=== PATIENT | female | born 1965 | race Two or more races ===

== ENCOUNTER 2019-10-30 05:54 | Day surgery (SDC) | payer MEDICAID ==
[2019-10-30] MEDS ORDERED: ANESTHESIA TRAY IN PYXIS 1 EA TRAY MC ONE (06:30)
[2019-10-30] MEDS ORDERED: LIDOCAINE HCL/MPF 1% 30 ML VIAL IJ ONE (06:31)
[2019-10-30] MEDS ORDERED: EPINEPHRINE (1:1000) 1 MG/ML AMPUL ONE (06:31)
[2019-10-30] MEDS ORDERED: FENTANYL PF 250MCG/5ML AMPUL ONE ×2 (06:42)
[2019-10-30] MEDS ORDERED: MIDAZOLAM HCL 2 MG/2ML VIAL ONE (06:42)
[2019-10-30] MEDS ORDERED: FAMOTIDINE/PF INJ 20 MG/2 ML VIAL IV ONE (06:43)
[2019-10-30] MEDS ORDERED: ROCURONIUM BROMIDE 50 MG/5 ML ONE (06:43)
[2019-10-30] MEDS ORDERED: BUPIVACAINE 0.25% 75 MG/30 ML VIAL ONE (06:43)
[2019-10-30] MEDS ORDERED: methylPREDNISolone ACETATE 80 MG/ML VIAL ONE (07:46)
== END 2019-10-30 09:46 | disposition home or self-care (01) ==
LOC: DS 05:54
PROVIDERS: ATTEND Specialist
DX: M75.41 Impingement syndrome of right shoulder (principal); E66.01 Morbid (severe) obesity due to excess calories; I10 Essential (primary) hypertension; K21.9 Gastro-esophageal reflux disease without esophagitis; Z98.51 Tubal ligation status; Z90.49 Acquired absence of other specified parts of digestive tract; Z98.890 Other specified postprocedural states; Z79.899 Other long term (current) drug therapy
CPT/HCPCS: 29824; 88304; 88311; A4217; J0171; J0690; J1040; J2250; J2405; J2704; J2710; J2765; J3010 ×2; J3490 ×5